=== PATIENT | female | born 1970 | race African-American/Black ===

== ENCOUNTER 2024-11-03 09:08 | Inpatient (IN) | payer MEDICAID ==
[~2024-11-03] VITALS: Ht 167.6 cm; Wt 122.8 kg
--- NOTE | 2024-11-03 10:23 | ED.PDOC ---
Musculoskeletal HPI Comments 53 year old female presents to the ED with chief complaint of left thigh pain and swelling. Patient reports that she has been experiencing left thigh pain and swelling with associated SOB and mild chest pain since yesterday. 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 Patient denie s any numbness, dizziness, headache, N/V, or fever. Chief Complaint: Lower Extremity Time Seen by MD: 10:12 Reviewed Notes: Nurses Notes, Medications, Allergies Allergies: Coded Allergies: NO KNOWN ALLERGIES (Unverified , 11/03/24) Home Meds Reported Medications Amlodipine Besylate (Amlodipine Besylate) 5 Mg Tab, 1 TAB PO DAILY 11/03/24 Ramelteon (Ramelteon) 8 Mg Tab, 1 TAB PO DAILY 11/03/24 Bupropion Hcl (Bupropion Hcl Er) 200 Mg Tab, 1 TAB PO QAM 11/03/24 Lisinopril (Lisinopril) 20 Mg Tab, 1 TAB PO DAILY 11/03/24 Aripiprazole (Aripiprazole) 5 Mg Tab, 1 TAB PO DAILY 11/03/24 Information Source: Patient Mode of Arrival: Ambulatory Location: Left Extremity Location: Thigh Timing: Days Prehospital treatment: None Severity: Moderate Able to Move Extremity: Yes Bear Weight: Fully Pain: Moderate Mechanism: Spontaneous Circumstances: Spontaneous Onset of Symptoms: Spontaneous Symptoms: Swelling, Pain DVT Risk Factors: PE, CHF, DVT Last Tetanus: Unknown Past Medical History PAST MEDICAL HISTORY: Asthma, CHF, HTN, PE Past Medical History (Other): DVT Surgical History: Denies all surgeries ASSIGNMENT EDITOR History: Denies all ASSIGNMENT EDITOR Hx Family History Family History: Reviewed,noncontributory to illness Social History Smoker: Non-Smoker Alcohol: Denies ETOH Use Drugs: Denies Drug Use Lives In: Home Constitutional: denies: chills, diaphoresis, fatigue, fever, malaise, sweats, weakness, others EENTM: denies: blurred vision, double vision, ear bleeding, ear discharge, ear drainage, ear pain, ear ringing, eye pain, eye redness, hearing loss, mouth pain, mouth swelling, nasal discharge, nose bleeding, nose congestion, nose pain, photophobia, tearing, throat pain, throat swelling, voice changes, others Respiratory: reports: shortness of breath; denies: cough, hemoptysis, orthopnea, SOB at rest, SOB with excertion, stridor, wheezing, others Cardiovascular: reports: chest pain; denies: dizzy spells, diaphoresis, Dyspnea on exertion, edema, irregular heart beat, left arm pain, lightheadedness, palpitations, PND, syncope, others Gastrointestinal: denies: abdomen distended, abdominal pain, blood streaked bowels, constipated, diarrhea, dysphagia, difficulty swallowing, hematemesis, melena, nausea, poor appetite, poor fluid intake, rectal bleeding, rectal pain, vomiting, others Genitourinary: denies: abnormal vagina bleeding, burning, dyspareunia, dysuria, flank pain, frequency, hematuria, incontinence, pain, , vagina discharge, urgency, others Neurological: denies: dizziness, fainting, headache, left sided numbness, left sided weakness, numbness, paresthesia, pre-existing deficit, right sided numbne ss, right sided weakness, seizure, speech problems, tingling, tremors, weakness, others Musculoskeletal: reports: others (Left thigh pain); denies: back pain, gout, joint pain, joint swelling, muscle pain, muscle stiffness, neck pain Integumetry: denies: bruises, change in color, change in hair/nails, dryness, laceration, lesions, lumps, rash, wounds, others Allergic/Immunocompromised: denies: Difficulty Healing, Frequent Infections, Hives, Itching, others Hematologic/Lymphatic: denies: anemia, blood clots, easy bleeding, easy bruising, swollen glands, others Endocrine: denies: excessive hunger, excessive sweating, excessive thirst, excessive urination, flushing, intolerance to cold, intolerance to heat, unexplained weight gain, unexplained weight loss, others Psychiatric: denies: anxiety, bipolar disorder, depression, hopeless, panic disorder, schizophrenia, sleepless, suicidal, others All Other Systems: Reviewed and Negative Physical Exam General Appearance: Moderate Distress, Normal HEENT: Normal ENT Inspection, PERRL/EOMI Neck: Full Range of Motion, Non-Tender, Normal, Normal Inspection Respiratory: Chest Non-Tender, Lungs Clear, No Accessory Muscle Use, No Respiratory Distress, Normal Breath Sounds Cardiovascular: No Edema, No JVD, No Murmur, No Gallop, Normal Peripheral Pulses, Regular Rate/Rhythm Breast Exam: Deferred Gastrointestinal: No Organomegaly, Non Tender, No Pulsatile Mass, Normal Bowel Sounds, Soft Genitalia: Deferred Pelvic: Deferred Rectal: Deferred Extremities: No calf tenderness, Normal capillary refill, Normal inspection, Normal range of motion, Non-tender, No pedal edema Musculoskeletal : Apperance: Normal Neurologic: Alert, car body inspector II-XII nml as Tested, No Motor Deficits, Normal Affect, Normal Mood, No Sensory Deficits Cerebellar Function: Normal Reflexes: Normal Skin: Dry, Normal Color, Warm Peripheral Pulses: 3+ Radial (R), 3+ Radial (L) Lymphatic: No Adenopathy Was a procedure done? Was a procedure done?: No Differential Diagnosis EXT Differential Diagnosis: Deep Vein Thrombosis X-Ray, Labs, Meds, VS Vital Signs Date Time Temp Pulse Resp B/P (MAP) Pulse Ox O2 Delivery O2 Flow Rate FiO2 11/03/24 11:45 98.8 75 16 139/91 (107) 97 98.8 11/03/24 09:22 98.4 84 20 154/94 (114) 100 Bilateral DVT US: Findings: RIGHT SIDE: There is thrombus seen in the right lower extremity involving the superficial femoral vein. LEFT SIDE: There is thrombus seen in the left lower extremity extending from the common femoral vein to the superficial femoral vein. 1. Impression: 2. Bilateral positive DVT 3. Referring physician informed of the preliminary findings immediately following the exam. Patient alert. History of blood clots. Vitals stable. Answering all questions. No sign of any calf tenderness. She does state that she has been having swelling of the left thigh. Ultrasound does reveal DVT. She was given Lovenox. Reviewed her previous visit. Explained to the patient. Continue cardiac monitoring. Images Reviewed?: Images reviewed and evaluated by me Time of 1ST Reevaluation: 11:12 Reevaluation 1ST: Unchanged Patient Education/Counseling: Diagnosis, Treatment Family Education/Counseling: No Family Present Additional Information The following tests were ordered, and results were reviewed by me: Bilateral lower DVT. I reviewed and agreed with the following test results read by other providers: Bilateral lower DVT. I discussed treatment and results with medical personnel. Departure 1 Departure Time of Disposition: 13:03 Impression: Primary Impression: DVT (deep venous thrombosis) Qualified Codes: I82.403 - Acute embolism and thrombosis of unspecified deep veins of lower extremity, bilateral Disposition: ADMITTED INPATIENT Admit to: Med Surg Condition: Guarded Critical Care Note Critical Care Time?: Yes (90 min-critical care time only) Stability Stability form required: No Heart Score Heart Score: Heart Score Response (Comments) Value History N/A 0 EKG N/A 0 Age N/A 0 Risk Factors N/A 0 Troponin N/A 0 Total 0 I personally scribed for KETURAH ABDUL MD ([email or web address]) on 11/03/24 at 10:23. Electronically submitted by Luan Ledesma ([email or web address]). I personally scribed for KETURAH ABDUL MD ([email or web address]) on 11/03/24 at 11:16. Electronically submitted by Luan Ledesma ([email or web address]). I personally scribed for KETURAH ABDUL MD ([email or web address]) on 11/03/24 at 17:12. Electronically submitted by Kamilah Ferreira ([email or web address]). KETURAH ABDUL MD Nov 03, 2024 10:23
--- NOTE | 2024-11-03 10:59 | DVH ---
Bilateral lower extremity venous duplex Clinical History: dvt Comparison: None Technique: Duplex doppler evaluation of the deep venous systems of both lower extremities from the common femora l veins to the popliteal veins including color doppler and spectral/pulsed waveform analysis was perf ormed. Findings: RIGHT SIDE: There is thrombus seen in the right lower extremity involving the superficial femoral vein. LEFT SIDE: There is thrombus seen in the left lower extremity extending from the common femoral vein to the supe rficial femoral vein. 1. Impression: 2. Bilateral positive DVT 3. Referring physician informed of the preliminary findings immediately following the exam.
[2024-11-03] MEDS ORDERED: HEPARIN DRIP/D5W 100UNITS/ML 250 ML IV SCH (11:45)
[2024-11-03] MEDS ORDERED: ENOXAPARIN SOD 100 MG/1 ML SYRINGE SC ONE (11:45)
[2024-11-03] MEDS: HEPARIN SODIUM (PORCINE) 5000 UNITS/ML 1ML VIAL IV ONE ×2 (11:45→21:23)
[2024-11-03] MEDS ORDERED: NITROGLYCERIN 0.4 MG SL TAB SL PRN (12:00)
[2024-11-03] MEDS ORDERED: MORPHINE SULFATE INJ 2 MG/ml SYRG IV PRN (12:00)
[2024-11-03] MEDS ORDERED: ACETAMINOPHEN 325 MG TAB PO PRN (12:00)
--- NOTE | 2024-11-03 12:05 | DVHHP2 ---
History of Present Illness Reason for Visit: leg swelling and painn History of Present Illness Rhonda Carolina is a 53-year-old female with past medical history of hypertension, asthma, CHF, PE, right ankle surgery, and gastric bypass who presents to the ED with bilateral leg pain and swelling x1 day. Patient reports that she has history of PE and is currently taking Eliquis. Patient reports that her pain is a 9/10 aching and constant. She denies any fevers, chills, chest pain, shortness of breath, abdominal pain, nausea, vomiting, diarrhea, lightheadedness, and dizziness. Cardiovascular: CHF, HTN Pulmonary: Asthma, Pulmonary embolus Past Surgical History: Other Past Surgical History Right ankle surgery Gastric bypass Smoke: No ALCOHOL: none Drugs: Marijuana Lives: with Family Domestic Violence: Neg Review of Systems Constitutional: No: Fever, Chills, Sweats, Weakness, Malaise, Other Eyes: No: Pain, Vision change, Conjunctivae inflammation, Eyelid inflammation, Other, Redness ENT: No: Ear pain, Ear discharge, Nose pain, Nose discharge, Nose congestion, Mouth pain, Mouth swelling, Throat pain, Throat swelling, Other Respiratory: No: Cough, Dry, Shortness of breath, SOB with excertion, Wheezing, Hemoptysis, Pleuritic Pain, Sputum, Wheezing, Other Cardiovascular: No: Chest Pain, Palpitations, Orthopnea, Paroxysmal Noc. Dyspnea, Edema, Lt Headedness, Other Gastrointestinal: No: Nausea, Vomiting, Abdominal Pain, Diarrhea, Constipation, Melena, Hematochezia, Other Genitourinary: No Dysuria, No Frequency, No Incontinence, No Hematuria, No Retention, No Other Musculoskeletal: leg pain; No: other, neck pain, shoulder pain, arm pain, back pain, hand pain, foot pain Skin: No: Rash, Lesions, Jaundice, Bruising, Other Neurological: No: Weakness, Numbness, Incoordination, Change in speech, Confusion, Seizures, Other Allergies: Coded Allergies: NO KNOWN ALLERGIES (Unverified , 11/03/24) Medications Current Medications Medications Dose Ordered Sig/Anabela Route Start Time Stop Time Status Last Admin Dose Admin Heparin Sodium/ Dextrose 250 ml @ 21.258 mls/ hr [id number] IV 11/03/24 11:45 UNV Exam Vital Signs Vital Signs Date Time Temp Pulse Resp B/P (MAP) Pulse Ox O2 Delivery O2 Flow Rate FiO2 11/03/24 11:45 98.8 75 16 139/91 (107) 97 98.8 General Appearance: Alert, Oriented X3, Cooperative, No acute distress HEENT: Atraumatic, PERRLA, EOMI, Mucous membr. moist/pink Respiratory: Clear to auscultation, Normal air movement Cardiovascular: Regular rate, Normal S1, Normal S2, No murmurs Abdominal: Normal bowel sounds, Soft, No tenderness, No hepatospenomegaly, No masses Extremities: No clubbing, No cyanosis, No edema, Normal pulses, No tenderness/swelling Skin: No rashes, No breakdown, No significant lesion Neuro: Normal gait, Normal speech, Strength at 5/5 X4 ext, Normal tone, Sensation intact Psych/Mental Status: Mental status NL, Mood NL Labs/Xrays Bilateral lower extremity venous duplex Clinical History: dvt Comparison: None Technique: Duplex doppler evaluation of the deep venous systems of both lower extremities f rom the common femoral veins to the popliteal veins including color doppler and spectral/pulsed waveform analysis was performed. Findings: RIGHT SIDE: There is thrombus seen in the right lower extremity involving the superficial femoral vein. LEFT SIDE: There is thrombus seen in the left lower extremity extending from the common femoral vein to the superficial femoral vein. 1. Impression: 2. Bilateral positive DVT Assessment/Plan Assessment/Plan Assessment/Plan: DVT Hx of PE - on eliquis ekg cxr labs am labs ekg am cta chest US BLE - positive for DVT Protein C Protein S functional Factor V liden heparin drip heme consult PT/PTT trop Hx of HTN Chronic CHF continue home meds Chronic asthma resp txs FEN/PPX diet IVf DVT PPx - heparin drip PUD PPx - not indicated patient has no history of GERD or GI bleed Home medications reconciled Discussed plan of care with patient and nurse Admit to tele Plan discussed with: Patient My Orders Orders - KELLY LYNCH Procedure Category Date Status Time Complete Blood Count LAB 11/03/24 Logged 11:35 Comprehensive LAB 11/03/24 Logged Metabolic Panel 11:35 Electrocardigram EKG 11/03/24 Logged 11:35 Chest Xray 1 View XY 11/03/24 Logged 11:36 Platelet Monitoring JARROD 11/03/24 In Process 11:42 Vte Protocol Initiated [facility] 11/03/24 In Process 11:42 Heparin Per [facility] 11/03/24 In Process Standardized Proce 11:42 Discontinue All Im JARROD 11/03/24 In Process Injections 11:42 PTPTT LAB 11/03/24 Logged 11:42 Complete Blood Count LAB 11/03/24 Logged 11:42 Heparin Sodium PHA 11/03/24 Logged (Porcine) 11:45 Heparin Drip/D5w PHA 11/03/24 Logged 100units/Ml 11:[address] 11/03/24 Logged Contrast 11:42 * Hematology/Oncology CONS 11/03/24 Transmitted Consult 11:55 Factor V Leiden LAB 11/03/24 Logged Mutation 11:55 Protein C Antigen LAB 11/03/24 Logged 11:55 Protein S-Functional LAB 11/03/24 Logged 11:55 Admit ADMIT 11/03/24 Transmitted 11:59 Allergies [facility] 11/03/24 In Process 11:59 Code Status CODE 11/03/24 Transmitted 11:59 Hydrocodone-Acet PHA 11/03/24 Logged 5/325mg Tab ([place] 12:00 Ondansetron Hcl PHA 11/03/24 Logged (Zofran) 12:00 Complete Blood Count LAB 11/04/24 Verified 04:00 Comprehensive LAB 11/04/24 Verified Metabolic Panel 04:00 Cardiac DIET 11/03/24 Transmitted Diet-2gna,Lofat,Lochol Lunch Acetaminophen Tablet [facility] 11/03/24 Logged (Tylenol Tablet) 12:00 Morphine Sulfate PHA 11/03/24 Logged Injection 12:00 Nitroglycerin PHA 11/03/24 Logged Sublingual (Ntrostat 12:00 Morphine Sulfate [facility] 11/03/24 Logged Injection 12:00 Stat Ekg For Chest [facility] 11/03/24 In Process Pain 11:59 Notify Of Changes [facility] 11/03/24 In Process From Base 11:59 Veneer Manufacturer For [facility] 11/03/24 In Process 24 Hours 11:59 Emergency Dysrhythmia [facility] 11/03/24 In Process Protocol 11:59 Rhythm Strips Once [facility] 11/03/24 In Process Every Shift 11:59 Oxygen By Nasal RT 11/03/24 Transmitted Cannula 11:59 Date of Service: Nov 03, 2024 Billing Provider: KELLY LYNCHP Common Visit Codes: [id number] INP/OBS CARE (MOD) KELLY LYNCH BLADDER CLEANER Nov 03, 2024 12:05
[2024-11-03] MEDS ORDERED: LISI20TA56 PO (12:23)
[2024-11-03] MEDS ORDERED: RAME8TAB26 PO (12:23)
[2024-11-03] MEDS ORDERED: AMLO1TAB22 PO (12:23)
[2024-11-03] MEDS ORDERED: BUPR200T49 PO (12:23)
[2024-11-03] MEDS ORDERED: ARIP5TAB22 PO (12:23)
[2024-11-03] MEDS ORDERED: ALBUTEROL SULF 2.5 MG/0.5ML(0.5%) NEB SOLN NEB PRN (12:30)
[2024-11-03] MEDS ORDERED: IPRATROPIUM BROM 0.5 MG/2.5ML INH SOL NEB PRN (12:30)
[2024-11-03 13:17] LABS: Basophils # (auto) 0.1 10 ^3/uL (0-0.2); Basophils % (auto) 1.3 % (0.0-2.0); Eosinophils # (auto) 0.1 10 ^3/uL (0-0.8); Eosinophils % (auto) 1.8 % (0.0-7.0); Hematocrit 37.4 % (36.0-46.0); Hemoglobin 12.2 g/dL (12.2-16.2); Lymphocytes # (auto) 1.7 10 ^3/uL (0.4-5.4); Lymphocytes % (auto) 31.1 % (10.0-50.0); Mean Corpuscular Hemoglobin 28.5 pg (28.0-32.0); Mean Corpuscular Hgb Conc. 32.5 g/dL (32.0-36.0); Mean Corpuscular Volume 87.7 fL (80.0-100.0); Monocytes # (auto) 0.3 10 ^3/uL (0-1.3); Monocytes % (auto) 6.3 % (0.0-12.0); Neutrophils # (auto) 3.2 10 ^3/uL (1.6-8.6); Neutrophils % (auto) 59.5 % (37.0-80.0); Nucleated Red Blood Cells % 0.1 %; Platelet Count (auto) 164 10^3/uL (140-450); Red Blood Cells 4.27 10^6/uL (4.0-5.20); Red Cell Distribution Width 18.5 % (11.8-14.3); White Blood Cell 5.5 10^3/uL (4.4-10.8)
[2024-11-03 13:30] LABS: Partial Thromboplastin Time 24.5 SEC (24.5-34.5); Prothrombin Time 10.6 sec (9.3-11.8)
[2024-11-03 13:32] LABS: Albumin 4.2 g/dL (3.2-4.8); Alkaline Phosphatase 75 U/L (46-116); Anion Gap 8 (5-15); Aspartate Aminotransferase 15 U/L (13-40); BUN/Creatinine Ratio 10.4 (10.0-20.0); Calcium 10.1 mg/dL (8.7-10.4); Carbon Dioxide 24 mmol/L (20-31); Chloride 106 mmol/L (98-107); Glucose 88 mg/dL (74-106); Potassium 3.8 mmol/L (3.5-5.1); Sodium 138 mmol/L (136-145)
[2024-11-03 13:33] LABS: Bilirubin, Total 1.2 mg/dL (0.2-1.0); Total Protein 8.1 g/dL (5.7-8.2)
[2024-11-03 13:39] VITALS: BP 131/88; PULSE 81; RESP 18; O2SAT 96
[2024-11-03 13:40] LABS: Alanine Aminotransferase < 9 U/L (7-40); Blood Urea Nitrogen 8 mg/dL (9-23)
--- NOTE | 2024-11-03 14:53 | DVH ---
CHEST RADIOGRAPH Indication: sob Technique: Single frontal view of the chest was obtained Comparison: None FINDINGS: Lines and Tubes: None Lungs: No focal consolidation. Pleura: No effusion. No pneumothorax. Cardiomediastinal contours: Unremarkable Bones: No acute osseous abnormality. IMPRESSION: 1. No acute cardiopulmonary disease.
[2024-11-03] MEDS: IOHEXOL 350 MG/ML 100ML IJ ONE (14:54)
[2024-11-03 15:00] VITALS: PULSE 82; RESP 16; O2SAT 100
--- NOTE | 2024-11-03 15:03 | DVH ---
CLINICAL INFORMATION: 53 years old, Female; pulmonary embolism. No other clinical information provi ded. Positive DVT. TECHNIQUE: Axial CTA images of the chest were obtained after the uneventful administration of 100 mL of Omnipaque 350 IV contrast. Coronal and sagittal reformatted images and MIP images were obtained, reviewed, and stored. One or more of the following dose reduction techniques were used: Automated exp osure control. Adjustment of mA and/or kV according to patient size. CTDIvol = 32.56, 26.95, 0.07, 0.07 mGy DLP = 1028.46 mGy-cm COMPARISON: Chest radiograph dated 11/03/2024. FINDINGS: Pulmonary arteries: No central or lobar pulmonary embolism. Evaluation for segmental or subsegmental pulmonary emboli is limited due to respiratory motion artifact Aorta: No aneurysm or dissection. Cardiac: Heart size is within normal limits. Mediastinum/lorrie: No mass or adenopathy. Lungs: Atelectasis in the lower lobes. No focal consolidation. No pneumothorax or pleural effusion. R espiratory motion limits evaluation for subtle findings. Chest wall: No mass or other abnormality. Upper abdomen: Small to moderate hiatal hernia. Postsurgical changes are seen at the proximal stomach with suture material visualized. Bones: No fracture or suspicious intraosseous lesions. IMPRESSION: 1. No central or lobar pulmonary embolism. Evaluation for segmental or subsegmental pulmonary emboli is limited due to respiratory motion artifact. 2. Otherwise, no evidence of acute disease in the chest. 3. Nonacute findings as detailed above.
[2024-11-03] MEDS: ONDANSETRON HCL 4 MG/2 ML VIAL IV PRN (16:32)
[2024-11-03] MEDS: MORPHINE SULFATE INJ 2 MG/ml SYRG IV PRN (16:33)
[2024-11-03 20:10] VITALS: O2SAT 95
[2024-11-03 20:56] VITALS: PULSE 77; RESP 17; O2SAT 97
[2024-11-03] MEDS: HEPARIN DRIP/D5W 100UNITS/ML 250 ML IV SCH (21:30)
[2024-11-03] MEDS: HYDROcodone-ACET 5/325MG TAB PO PRN (21:35)
[2024-11-03] MEDS ORDERED: ENOXAPARIN SOD 100 MG/1 ML SYRINGE SC SCH (22:00)
[2024-11-03 22:44] VITALS: BP 132/79; PULSE 87; RESP 17; RESP 20; TEMP 97.8; O2SAT 96
[2024-11-04] VITALS (10 sets, daily range): BP systolic 106–134; BP diastolic 64–85; PULSE 60–84; RESP 15–18; TEMP 97.2–98.6; O2SAT 95–98
[2024-11-04 06:49] LABS: Albumin 4.1 g/dL (3.2-4.8); Alkaline Phosphatase 70 U/L (46-116); Anion Gap 6 (5-15); BUN/Creatinine Ratio 9.8 (10.0-20.0); Calcium 9.9 mg/dL (8.7-10.4); Carbon Dioxide 26 mmol/L (20-31); Chloride 107 mmol/L (98-107); Glucose 90 mg/dL (74-106); Sodium 139 mmol/L (136-145)
[2024-11-04 06:50] LABS: Bilirubin, Total 1.1 mg/dL (0.2-1.0); Total Protein 7.9 g/dL (5.7-8.2)
[2024-11-04 06:56] LABS: Alanine Aminotransferase < 9 U/L (7-40); Aspartate Aminotransferase 11 U/L (13-40); Blood Urea Nitrogen 8 mg/dL (9-23); Potassium 3.5 mmol/L (3.5-5.1)
[2024-11-04 06:57] LABS: Basophils # (auto) 0.1 10 ^3/uL (0-0.2); Eosinophils # (auto) 0.2 10 ^3/uL (0-0.8); Eosinophils % (auto) 2.9 % (0.0-7.0); Hematocrit 36.9 % (36.0-46.0); Hemoglobin 11.8 g/dL (12.2-16.2); Lymphocytes # (auto) 2.5 10 ^3/uL (0.4-5.4); Lymphocytes % (auto) 44.8 % (10.0-50.0); Mean Corpuscular Hemoglobin 28.3 pg (28.0-32.0); Mean Corpuscular Hgb Conc. 32.1 g/dL (32.0-36.0); Mean Corpuscular Volume 88.2 fL (80.0-100.0); Monocytes # (auto) 0.4 10 ^3/uL (0-1.3); Monocytes % (auto) 6.8 % (0.0-12.0); Neutrophils # (auto) 2.5 10 ^3/uL (1.6-8.6); Neutrophils % (auto) 44.5 % (37.0-80.0); Nucleated Red Blood Cells % 0.1 %; Platelet Count (auto) 174 10^3/uL (140-450); Red Blood Cells 4.18 10^6/uL (4.0-5.20); Red Cell Distribution Width 18.3 % (11.8-14.3); White Blood Cell 5.7 10^3/uL (4.4-10.8)
[2024-11-04 07:32] LABS: INR 1.07 (0.9-1.15); Prothrombin Time 11.3 sec (9.3-11.8)
[2024-11-04 07:37] LABS: Partial Thromboplastin Time > 139.0 SEC (24.5-34.5)
[2024-11-04] MEDS: HEPARIN DRIP/D5W 100UNITS/ML 250 ML IV SCH ×2 (08:59→16:09)
[2024-11-04 14:56] LABS: INR 1.06 (0.9-1.15); Prothrombin Time 11.2 sec (9.3-11.8)
[2024-11-04 14:58] LABS: Partial Thromboplastin Time > 139.0 SEC (24.5-34.5)
--- NOTE | 2024-11-04 16:56 | DVHPN2 ---
Subjective I am assuming the care of the patient from today onwards. Patient is a 53-year-old female with a known history of recurrent PE and DVT in the past currently on Eliquis presented to the hospital with a bilateral leg pain and swelling found to have bilateral lower extremity dvt. Reviewed: Care Plan Changes from previous H/P or p: No Changes Eyes: No Pain, No Vision change, No Conjunctivae inflammation, No Eyelid inflammation, No Other, No Redness ENT: No Ear pain, No Ear discharge, No Nose pain, No Nose discharge, No Nose congestion, No Mouth pain, No Mouth swelling, No Throat pain, No Throat swelling, No Other Cardiovascular: No Chest Pain, No Palpitations, No Orthopnea, No Paroxysmal Noc. Dyspnea, No Edema, No Lt Headedness, No Other Respiratory: No Cough, No Dry, No Shortness of breath, No SOB with excertion, No Wheezing, No Hemoptysis, No Pleuritic Pain, No Sputum, No Other Gastrointestinal: No Nausea, No Vomiting, No Abdominal Pain, No Diarrhea, No Constipation, No Melena, No Hematochezia, No Other Genitourinary: No Dysuria, No Frequency, No Incontinence, No Hematuria, No Retention, No Other Musculoskeletal: No other, No neck pain, No shoulder pain, No arm pain, No back pain, No hand pain; leg pain; No foot pain Skin: No Rash, No Lesions, No Jaundice, No Bruising, No Other Objective Vitals Vital Signs Date Time Temp Pulse Resp B/P (MAP) Pulse Ox O2 Delivery O2 Flow Rate FiO2 11/04/24 16:13 79 18 134/85 11/04/24 10:00 96 Room Air 0.0 11/04/24 10:00 21 11/04/24 08:30 98.6 98.6 Intake/Output Intake and Output 11/04/24 07:00 Intake Total 540 ml Balance 540 ml Intake Oral 500 ml IV Total 40 ml # Bowel Movements 1 Medications Current Medications Medications Dose Ordered Sig/Anabela Route Start Time Stop Time Status Last Admin Dose Admin Acetaminophen/ Hydrocodone Bitart 1 tab Q4HP PRN PO 11/03/24 12:00 11/04/24 09:15 1 TAB Ondansetron HCl 4 mg Q4HP PRN IV 11/03/24 12:00 11/04/24 06:30 4 MG Acetaminophen 650 mg Q6HP PRN PO 11/03/24 12:00 Morphine Sulfate 2 mg Q4HPRN PRN IV 11/03/24 12:00 11/04/24 16:13 2 MG Nitroglycerin 0.4 mg Q5MINP PRN SL 11/03/24 12:00 Morphine Sulfate 2 mg Q30M PRN IV 11/03/24 12:00 Albuterol 2.5 mg Q4HPRN PRN NEB 11/03/24 12:30 Ipratropium Kermit 0.5 mg Q4HPRN PRN NEB 11/03/24 12:30 Heparin Sodium/ Dextrose 250 ml @ 14 mls/hr [id number] IV 11/04/24 16:00 11/04/24 16:09 14 MLS/HR Trazodone HCl 50 mg HS PRN PO 11/04/24 15:45 Laboratory Results Laboratory Tests 11/04/24 05:54 Chemistry Test 11/04/24 05:54 Albumin 4.1 g/dL (3.2-4.8) Calcium Level 9.9 mg/dL (8.7-10.4) Total Protein 7.9 g/dL (5.7-8.2) Coagulation Test 11/04/24 05:54 11/04/24 14:05 Prothrombin Time 11.3 sec (9.3-11.8) 11.2 sec (9.3-11.8) Prothrombin Time INR 1.07 (0.9-1.15) 1.06 (0.9-1.15) Activated Partial Thromboplast Time > 139.0 SEC (24.5-34.5) *H > 139.0 SEC (24.5-34.5) *H LFT Test 11/04/24 05:54 Alanine Aminotransferase (ALT) < 9 U/L (7-40) Alkaline Phosphatase 70 U/L (46-116) Aspartate Amino Transferase (AST) 11 U/L (13-40) L Total Bilirubin 1.1 mg/dL (0.2-1.0) H Assessment/Plan Assessment/Plan I am assuming the care of the patient from today onwards. Patient is a 53-year-old female with a 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 Bilateral lower extremity DVT 2. Bilateral lower extremity swelling secondary to 1. 3. History of DVT and PE in the past as she was on control pills 4. History of gastric bypass surgery 5. Hypertension 6. Chronic insomnia, patient is requesting sleeping aid as she has chronic insomnia she takes ramelteon at home which were hospitalist not carry, trazodone 50 mg p.o. q.h.s. p.r.n. insomnia only. -continue heparin drip, obtain Hematology consultation -please benefits and alternatives of heparin drip including life-threatening bleeding disability explained to the patient in detail who understand verbalized understanding and agreeable to plan. Plan discussed with: Patient My Orders Orders - SANTOS RODRIGUEZ MD Procedure Category Date Status Time Trazodone Hcl PHA 11/04/24 In Process (Desyrel) 15:45 Date of Service: Nov 04, 2024 Billing Provider: SANTOS RODRIGUEZ MD Common Visit Codes: [id number] INP/OBS CARE(MOD) SANTOS RODRIGUEZ MD Nov 04, 2024 16:56
[2024-11-04] MEDS ORDERED: HEPARIN DRIP/D5W 100UNITS/ML 250 ML IV SCH (17:00)
[2024-11-04 22:38] LABS: INR 1.05 (0.9-1.15); Prothrombin Time 11.1 sec (9.3-11.8)
[2024-11-04 22:40] LABS: Partial Thromboplastin Time 115.5 SEC (24.5-34.5)
[2024-11-05] VITALS (11 sets, daily range): BP systolic 118–140; BP diastolic 68–73; PULSE 71–98; RESP 16–20; TEMP 97.1–98; O2SAT 90–98
[2024-11-05] MEDS: HEPARIN DRIP/D5W 100UNITS/ML 250 ML IV SCH ×2 (05:16→17:00)
[2024-11-05 08:31] LABS: Basophils # (auto) 0.1 10 ^3/uL (0-0.2); Basophils % (auto) 1.3 % (0.0-2.0); Eosinophils # (auto) 0.1 10 ^3/uL (0-0.8); Eosinophils % (auto) 3.1 % (0.0-7.0); Hematocrit 35.6 % (36.0-46.0); Hemoglobin 11.6 g/dL (12.2-16.2); Lymphocytes # (auto) 1.8 10 ^3/uL (0.4-5.4); Lymphocytes % (auto) 40.9 % (10.0-50.0); Mean Corpuscular Hemoglobin 28.1 pg (28.0-32.0); Mean Corpuscular Hgb Conc. 32.6 g/dL (32.0-36.0); Mean Corpuscular Volume 86.1 fL (80.0-100.0); Monocytes # (auto) 0.3 10 ^3/uL (0-1.3); Monocytes % (auto) 6.6 % (0.0-12.0); Neutrophils # (auto) 2.1 10 ^3/uL (1.6-8.6); Neutrophils % (auto) 48.1 % (37.0-80.0); Nucleated Red Blood Cells % 0.2 %; Platelet Count (auto) 184 10^3/uL (140-450); Red Blood Cells 4.13 10^6/uL (4.0-5.20); Red Cell Distribution Width 18.6 % (11.8-14.3); White Blood Cell 4.3 10^3/uL (4.4-10.8)
[2024-11-05 08:49] LABS: INR 1.13 (0.9-1.15); Prothrombin Time 11.9 sec (9.3-11.8)
[2024-11-05 16:12] LABS: INR 1.03 (0.9-1.15); Prothrombin Time 10.9 sec (9.3-11.8)
[2024-11-05 16:27] LABS: Partial Thromboplastin Time 76.6 SEC (24.5-34.5)
--- NOTE | 2024-11-05 16:57 | DVHPN2 ---
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 Patient will be started on Coumadin. Reviewed: Care Plan Changes from previous H/P or p: No Changes Eyes: No Pain, No Vision change, No Conjunctivae inflammation, No Eyelid inflammation, No Other, No Redness ENT: No Ear pain, No Ear discharge, No Nose pain, No Nose discharge, No Nose congestion, No Mouth pain, No Mouth swelling, No Throat pain, No Throat swelling, No Other Cardiovascular: No Chest Pain, No Palpitations, No Orthopnea, No Paroxysmal Noc. Dyspnea, No Edema, No Lt Headedness, No Other Respiratory: No Cough, No Dry, No Shortness of breath, No SOB with excertion, No Wheezing, No Hemoptysis, No Pleuritic Pain, No Sputum, No Other Gastrointestinal: No Nausea, No Vomiting, No Abdominal Pain, No Diarrhea, No Constipation, No Melena, No Hematochezia, No Other Genitourinary: No Dysuria, No Frequency, No Incontinence, No Hematuria, No Retention, No Other Musculoskeletal: No other, No neck pain, No shoulder pain, No arm pain, No back pain, No hand pain; leg pain; No foot pain Skin: No Rash, No Lesions, No Jaundice, No Bruising, No Other Objective Vitals Vital Signs Date Time Temp Pulse Resp B/P (MAP) Pulse Ox O2 Delivery O2 Flow Rate FiO2 11/05/24 13:00 97.6 98 18 120/68 (85) 95 97.6 11/05/24 10:02 Room Air* 0 21 Intake/Output Intake and Output 11/05/24 07:00 Intake Total 1590 ml Output Total 850 ml Balance 740 ml Intake Oral 1590 ml Output Urine Total 850 ml # Voids 5 # Bowel Movements 1 Medications Current Medications Medications Dose Ordered Sig/Anabela Route Start Time Stop Time Status Last Admin Dose Admin Acetaminophen/ Hydrocodone Bitart 1 tab Q4HP PRN PO 11/03/24 12:00 11/05/24 13:53 1 TAB Ondansetron HCl 4 mg Q4HP PRN IV 11/03/24 12:00 11/04/24 06:30 4 MG Acetaminophen 650 mg Q6HP PRN PO 11/03/24 12:00 Morphine Sulfate 2 mg Q4HPRN PRN IV 11/03/24 12:00 11/05/24 09:44 2 MG Nitroglycerin 0.4 mg Q5MINP PRN SL 11/03/24 12:00 Morphine Sulfate 2 mg Q30M PRN IV 11/03/24 12:00 Albuterol 2.5 mg Q4HPRN PRN NEB 11/03/24 12:30 Ipratropium [place] 0.5 mg Q4HPRN PRN NEB 11/03/24 12:30 Trazodone HCl 50 mg HS PRN PO 11/04/24 15:45 Warfarin Sodium RX PROTOCOL PER PHARMACY PO 11/05/24 15:15 Heparin Sodium/ Dextrose 250 ml @ 9 mls/hr Q24H IV 11/05/24 16:30 Laboratory Results Laboratory Tests 11/04/24 05:54 11/05/24 07:31 Coagulation Test 11/04/24 22:00 11/05/24 07:31 11/05/24 15:00 Prothrombin Time 11.1 sec (9.3-11.8) 11.9 sec (9.3-11.8) H 10.9 sec (9.3-11.8) Prothrombin Time INR 1.05 (0.9-1.15) 1.13 (0.9-1.15) 1.03 (0.9-1.15) Activated Partial Thromboplast Time 115.5 SEC (24.5-34.5) *H 68.0 SEC (24.5-34.5) H 76.6 SEC (24.5-34.5) *H Assessment/Plan Assessment/Plan Patient is a 53-year-old female with a 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 Bilateral lower extremity DVT, currently on heparin drip we will add Coumadin per pharmacy 2. Bilateral lower extremity swelling secondary to 1. 3. History of DVT and PE in the past as she was on control pills 4. History of gastric bypass surgery 5. Hypertension 6. Chronic insomnia, patient is requesting sleeping aid as she has chronic insomnia she takes ramelteon at home which were hospitalist not carry, trazodone 50 mg p.o. q.h.s. p.r.n. insomnia only. -monitor INR. Once INR is more than two patient can be discharged or patient can be discharged on Coumadin as well as three days of Lovenox if she requesting to go home. -continue heparin drip, transfer station attendant recommended Coumadin, consult was requested curbside. -please benefits and alternatives of heparin drip including life-threatening bleeding disability explained to the patient in detail who understand verbalized understanding and agreeable to plan. Plan discussed with: Patient My Orders Orders - SANTSO RODRIGUEZ MD Procedure Category Date Status Time Warfarin Per Rx PHA 11/05/24 In Process Protocol (Coumadin 15:15 Warfarin Sodium PHA 11/05/24 In Process (Coumadin) 17:00 Date of Service: Nov 05, 2024 Billing Provider: SANTOS RODRIGUEZ MD Common Visit Codes: [id number] INP/OBS CARE(MOD) SANTOS RODRIGUEZ MD Nov 05, 2024 16:57
[2024-11-05] MEDS: WARFARIN SODIUM 5 MG TAB PO ONE (18:31)
[2024-11-05 22:30] LABS: INR 1.02 (0.9-1.15); Partial Thromboplastin Time 55.5 SEC (24.5-34.5); Prothrombin Time 10.8 sec (9.3-11.8)
[2024-11-06] VITALS (11 sets, daily range): BP systolic 100–124; BP diastolic 63–83; PULSE 72–87; RESP 15–20; TEMP 97.6–98; O2SAT 94–98
[2024-11-06 03:06] LABS: Basophils # (auto) 0 10 ^3/uL (0-0.2); Basophils % (auto) 1.1 % (0.0-2.0); Eosinophils # (auto) 0.2 10 ^3/uL (0-0.8); Eosinophils % (auto) 3.8 % (0.0-7.0); Hematocrit 34.5 % (36.0-46.0); Hemoglobin 11.1 g/dL (12.2-16.2); Lymphocytes # (auto) 1.9 10 ^3/uL (0.4-5.4); Lymphocytes % (auto) 44.9 % (10.0-50.0); Mean Corpuscular Hemoglobin 28.3 pg (28.0-32.0); Mean Corpuscular Hgb Conc. 32.3 g/dL (32.0-36.0); Mean Corpuscular Volume 87.4 fL (80.0-100.0); Monocytes # (auto) 0.3 10 ^3/uL (0-1.3); Monocytes % (auto) 7.1 % (0.0-12.0); Neutrophils # (auto) 1.8 10 ^3/uL (1.6-8.6); Neutrophils % (auto) 43.1 % (37.0-80.0); Nucleated Red Blood Cells % 0.2 %; Platelet Count (auto) 202 10^3/uL (140-450); Red Blood Cells 3.94 10^6/uL (4.0-5.20); Red Cell Distribution Width 18.8 % (11.8-14.3); White Blood Cell 4.2 10^3/uL (4.4-10.8)
[2024-11-06 03:23] LABS: INR 1.02 (0.9-1.15); Partial Thromboplastin Time 58.3 SEC (24.5-34.5); Prothrombin Time 10.8 sec (9.3-11.8)
[2024-11-06 11:47] LABS: Partial Thromboplastin Time 39.4 SEC (24.5-34.5); Prothrombin Time 10.6 sec (9.3-11.8)
--- NOTE | 2024-11-06 14:04 | DVHPN2 ---
Subjective Patient states that her left lower extremity hurts more than her right, rated a 5/10. Reviewed: Care Plan Changes from previous H/P or p: No Changes General: Per HPI Eyes: No Pain, No Vision change, No Conjunctivae inflammation, No Eyelid inflammation, No Other, No Redness ENT: No Ear pain, No Ear discharge, No Nose pain, No Nose discharge, No Nose congestion, No Mouth pain, No Mouth swelling, No Throat pain, No Throat swelling, No Other Cardiovascular: No Chest Pain, No Palpitations, No Orthopnea, No Paroxysmal Noc. Dyspnea, No Edema, No Lt Headedness, No Other Respiratory: No Cough, No Dry, No Shortness of breath, No SOB with excertion, No Wheezing, No Hemoptysis, No Pleuritic Pain, No Sputum, No Other Gastrointestinal: No Nausea, No Vomiting, No Abdominal Pain, No Diarrhea, No Constipation, No Melena, No Hematochezia, No Other Genitourinary: No Dysuria, No Frequency, No Incontinence, No Hematuria, No Retention, No Other Musculoskeletal: No other, No neck pain, No shoulder pain, No arm pain, No back pain, No hand pain; leg pain; No foot pain Skin: No Rash, No Lesions, No Jaundice, No Bruising, No Other Objective Vitals Vital Signs Date Time Temp Pulse Resp B/P (MAP) Pulse Ox O2 Delivery O2 Flow Rate FiO2 11/06/24 13:19 97.6 82 17 119/78 (92) 98 97.6 11/06/24 10:00 Room Air* 0 21 Intake/Output Intake and Output 11/06/24 07:00 Intake Total 990 ml Balance 990 ml Intake Oral 990 ml # Voids 5 General Appearance: Alert, Oriented X3, Cooperative, mild distress, Other (Obese) HEENT: Atraumatic, PERRLA Neck: Carotid Bruits [place], Enlarged Thyroid Cardiovascular: Normal S1, Normal S2 Abdomen: Normal bowel sounds Back: Midline Tenderness Musculoskeletal: Normal sensory function, Normal motor function Neuro: Normal gait, Normal speech Psych/Mental Status: Mental status NL, Mood NL Medications Current Medications Medications Dose Ordered Sig/Anabela Route Start Time Stop Time Status Last Admin Dose Admin Acetaminophen/ Hydrocodone Bitart 1 tab Q4HP PRN PO 11/03/24 12:00 11/05/24 13:53 1 TAB Ondansetron HCl 4 mg Q4HP PRN IV 11/03/24 12:00 11/04/24 06:30 4 MG Acetaminophen 650 mg Q6HP PRN PO 11/03/24 12:00 Morphine Sulfate 2 mg Q4HPRN PRN IV 11/03/24 12:00 11/06/24 10:11 2 MG Nitroglycerin 0.4 mg Q5MINP PRN SL 11/03/24 12:00 Morphine Sulfate 2 mg Q30M PRN IV 11/03/24 12:00 Albuterol 2.5 mg Q4HPRN PRN NEB 11/03/24 12:30 Ipratropium [place] 0.5 mg Q4HPRN PRN NEB 11/03/24 12:30 Trazodone HCl 50 mg HS PRN PO 11/04/24 15:45 Warfarin Sodium RX PROTOCOL PER PHARMACY PO 11/05/24 15:15 Heparin Sodium/ Dextrose 250 ml @ 9 mls/hr Q24H IV 11/05/24 16:30 11/06/24 12:34 11 MLS/HR Laboratory Results Laboratory Tests 11/04/24 05:54 11/06/24 02:55 Coagulation Test 11/05/24 15:00 11/05/24 20:58 11/06/24 02:55 11/06/24 11:12 Prothrombin Time 10.9 sec (9.3-11.8) 10.8 sec (9.3-11.8) 10.8 sec (9.3-11.8) 10.6 sec (9.3-11.8) Prothrombin Time INR 1.03 (0.9-1.15) 1.02 (0.9-1.15) 1.02 (0.9-1.15) 1.00 (0.9-1.15) Activated Partial Thromboplast Time 76.6 SEC (24.5-34.5) *H 55.5 SEC (24.5-34.5) H 58.3 SEC (24.5-34.5) H 39.4 SEC (24.5-34.5) H Labs and/or images reviewed: Labs reviewed by me, Image(s) reviewed by me Assessment/Plan Assessment/Plan Impression: -DVT to lower extremities -history of DVTs with pulmonary embolism -history of bypass surgery -obesity -primary hypertension Plan: -long discussion was made with the patient regarding treatment options. We will consult Interventional Cardiology for evaluation of DVTs -continue current anticoagulation with heparin, bridge with Coumadin -antihypertensives -pain management -protein S, protein C, factor five Leiden currently pending -repeat Labs in a.m. Total time spent with patient discussing and formulating plan of care: 35 minutes. This medical document was created using an electronic medical record system with [employer] dictation system. Although this document has been carefully reviewed, there may still be some phonetic and typographical errors. These areas are purely typographical due to imperfections of the software programs, and do not reflect any compromise in the patient's medical care. Plan discussed with: Patient, Other (RN) My Orders Orders - USHA EUBANKS NP Procedure Category Date Status Time * Cardiology Consult CONS 11/06/24 Transmitted 14:01 Date of Service: Nov 06, 2024 Billing Provider: USHA EUBANKS NP Common Visit Codes: [id number] INP/OBS CARE(HIGH) USHA EUBANKS NP Nov 06, 2024 14:04
[2024-11-06] MEDS: WARFARIN SODIUM 5 MG TAB PO ONE (18:14)
[2024-11-06 18:51] LABS: INR 1.03 (0.9-1.15); Partial Thromboplastin Time 63.3 SEC (24.5-34.5); Prothrombin Time 10.9 sec (9.3-11.8)
[2024-11-07] VITALS (11 sets, daily range): BP systolic 112–133; BP diastolic 68–89; PULSE 66–82; RESP 12–20; TEMP 97.6–98.3; O2SAT 93–100
[2024-11-07 01:12] LABS: INR 1.03 (0.9-1.15); Prothrombin Time 10.9 sec (9.3-11.8)
[2024-11-07 06:58] LABS: Basophils # (auto) 0.1 10 ^3/uL (0-0.2); Basophils % (auto) 1.4 % (0.0-2.0); Eosinophils # (auto) 0.2 10 ^3/uL (0-0.8); Eosinophils % (auto) 4.7 % (0.0-7.0); Hematocrit 34.4 % (36.0-46.0); Hemoglobin 11.3 g/dL (12.2-16.2); Lymphocytes # (auto) 1.7 10 ^3/uL (0.4-5.4); Mean Corpuscular Hemoglobin 28.1 pg (28.0-32.0); Mean Corpuscular Hgb Conc. 32.8 g/dL (32.0-36.0); Mean Corpuscular Volume 85.8 fL (80.0-100.0); Monocytes # (auto) 0.3 10 ^3/uL (0-1.3); Monocytes % (auto) 8.2 % (0.0-12.0); Neutrophils # (auto) 1.6 10 ^3/uL (1.6-8.6); Neutrophils % (auto) 40.7 % (37.0-80.0); Nucleated Red Blood Cells % 0.2 %; Platelet Count (auto) 204 10^3/uL (140-450); Red Blood Cells 4.01 10^6/uL (4.0-5.20); Red Cell Distribution Width 18.1 % (11.8-14.3); White Blood Cell 3.8 10^3/uL (4.4-10.8)
[2024-11-07 08:38] LABS: INR 1.08 (0.9-1.15); Partial Thromboplastin Time 67.7 SEC (24.5-34.5); Prothrombin Time 11.4 sec (9.3-11.8)
[2024-11-07] MEDS: HEPARIN DRIP/D5W 100UNITS/ML 250 ML IV SCH (09:30)
--- NOTE | 2024-11-07 10:14 | DVHPN2 ---
Subjective Patient continues to state that her left lower extremity hurts more than her right, rated a 5/10. Reviewed: Care Plan, H&P, Labs, Medications Changes from previous H/P or p: No Changes General: Per HPI Eyes: No Pain, No Vision change, No Conjunctivae inflammation, No Eyelid inflammation, No Other, No Redness ENT: No Ear pain, No Ear discharge, No Nose pain, No Nose discharge, No Nose congestion, No Mouth pain, No Mouth swelling, No Throat pain, No Throat swelling, No Other Cardiovascular: No Chest Pain, No Palpitations, No Orthopnea, No Paroxysmal Noc. Dyspnea, No Edema, No Lt Headedness, No Other Respiratory: No Cough, No Dry, No Shortness of breath, No SOB with excertion, No Wheezing, No Hemoptysis, No Pleuritic Pain, No Sputum, No Other Gastrointestinal: No Nausea, No Vomiting, No Abdominal Pain, No Diarrhea, No Constipation, No Melena, No Hematochezia, No Other Genitourinary: No Dysuria, No Frequency, No Incontinence, No Hematuria, No Retention, No Other Musculoskeletal: No other, No neck pain, No shoulder pain, No arm pain, No back pain, No hand pain; leg pain; No foot pain Skin: No Rash, No Lesions, No Jaundice, No Bruising, No Other Objective Vitals Vital Signs Date Time Temp Pulse Resp B/P (MAP) Pulse Ox O2 Delivery O2 Flow Rate FiO2 11/07/24 10:02 66 19 129/78 11/07/24 07:59 Room Air* 0 21 11/07/24 06:46 93 11/07/24 05:00 97.6 97.6 Intake/Output Intake and Output 11/07/24 07:00 Intake Total 996.50 ml Balance 996.50 ml Intake Oral 660 ml IV Total 336.50 ml # Voids 6 General Appearance: Alert, Oriented X3, Cooperative, mild distress, Other (Obese) HEENT: Atraumatic, PERRLA Neck: Carotid Bru[place], Enlarged Thyroid Cardiovascular: Normal S1, Normal S2 Abdomen: Normal bowel sounds Back: Midline Tenderness Musculoskeletal: Normal sensory function, Normal motor function Neuro: Normal gait, Normal speech Psych/Mental Status: Mental status NL, Mood NL Medications Current Medications Medications Dose Ordered Sig/Anabela Route Start Time Stop Time Status Last Admin Dose Admin Acetaminophen/ Hydrocodone Bitart 1 tab Q4HP PRN PO 11/03/24 12:00 11/07/24 06:07 1 TAB Ondansetron HCl 4 mg Q4HP PRN IV 11/03/24 12:00 11/04/24 06:30 4 MG Acetaminophen 650 mg Q6HP PRN PO 11/03/24 12:00 Morphine Sulfate 2 mg Q4HPRN PRN IV 11/03/24 12:00 11/07/24 10:02 2 MG Nitroglycerin 0.4 mg Q5MINP PRN SL 11/03/24 12:00 Morphine Sulfate 2 mg Q30M PRN IV 11/03/24 12:00 Albuterol 2.5 mg Q4HPRN PRN NEB 11/03/24 12:30 Ipratropium [place] 0.5 mg Q4HPRN PRN NEB 11/03/24 12:30 Trazodone HCl 50 mg HS PRN PO 11/04/24 15:45 Warfarin Sodium RX PROTOCOL PER PHARMACY PO 11/05/24 15:15 Heparin Sodium/ Dextrose 250 ml @ 11 mls/hr [id number] IV 11/07/24 09:30 Laboratory Results Laboratory Tests 11/04/24 05:54 11/07/24 05:45 Coagulation Test 11/06/24 11:12 11/06/24 18:28 11/07/24 00:30 11/07/24 05:45 Prothrombin Time 10.6 sec (9.3-11.8) 10.9 sec (9.3-11.8) 10.9 sec (9.3-11.8) 11.4 sec (9.3-11.8) Prothrombin Time INR 1.00 (0.9-1.15) 1.03 (0.9-1.15) 1.03 (0.9-1.15) 1.08 (0.9-1.15) Activated Partial Thromboplast Time 39.4 SEC (24.5-34.5) H 63.3 SEC (24.5-34.5) H 57.0 SEC (24.5-34.5) H 67.7 SEC (24.5-34.5) H Labs and/or images reviewed: Labs reviewed by me, Image(s) reviewed by me Assessment/Plan Assessment/Plan Impression: -DVT to lower extremities -history of DVTs with pulmonary embolism -history of bypass surgery -obesity -primary hypertension -failure of oral anticoagulation-Eliquis Plan: -cardiology consultation for DVT thrombectomy evaluation -continue current anticoagulation with heparin, bridge with Coumadin , INR 1.08 today -antihypertensives -pain management -protein S, protein C, factor five Leiden currently pending -repeat Labs in a.m. Total time spent with patient discussing and formulating plan of care: 35 minutes. This medical document was created using an electronic medical record system with [employer] dictation system. Although this document has been carefully reviewed, there may still be some phonetic and typographical errors. These areas are purely typographical due to imperfections of the software programs, and do not reflect any compromise in the patient's medical care. Plan discussed with: Patient, Other (RN) My Orders Orders - USHA EUBANKS NP Procedure Category Date Status Time * Cardiology Consult CONS 11/06/24 Transmitted 14:01 Date of Service: Nov 07, 2024 Billing Provider: USHA EUBANKS NP Common Visit Codes: [id number] INP/OBS CARE(HIGH) USHA EUBANKS NP Nov 07, 2024 10:14
--- NOTE | 2024-11-07 11:22 | DVHINCON2 ---
Date of service: Nov 07, 2024 History of Present Illness 53 yo F with hx of DVT and PE in early suspected 2/2 to OCP use, hx of IVC filter placement for gastric bypass in 2005 complicated by DVt PE, now on doac x 6 years admitted for dvt. pt has bl DVT and L > R. pt has been ambulating a lot this past week but claims to take her doac faithfully. cta was - for PE Past Medical History reviewed Family History: Hypertension G8 FATHER Allergies: Coded Allergies: NO KNOWN ALLERGIES (Unverified , 11/03/24) Home Meds Reported Medications Amlodipine Besylate (Amlodipine Besylate) 5 Mg Tab, 1 TAB PO DAILY 11/03/24 Ramelteon (Ramelteon) 8 Mg Tab, 1 TAB PO DAILY 11/03/24 Bupropion Hcl (Bupropion Hcl Er) 200 Mg Tab, 1 TAB PO QAM 11/03/24 Lisinopril (Lisinopril) 20 Mg Tab, 1 TAB PO DAILY 11/03/24 Aripiprazole (Aripiprazole) 5 Mg Tab, 1 TAB PO DAILY 11/03/24 Current Medications Current Medications Medications (Trade) Dose Ordered Sig/Anabela Route PRN Reason Start Time Stop Time Status Last Admin Heparin Sodium/ Dextrose 250 ml @ 11 mls/hr [id number] IV 11/07/24 09:30 Review of Systems 10 pt ros otherwise negative Vital Signs Vital Signs Date Time Temp Pulse Resp B/P (MAP) Pulse Ox O2 Delivery O2 Flow Rate FiO2 11/07/24 10:02 66 19 129/78 11/07/24 09:00 98.1 97 98.1 11/07/24 07:59 Room Air* 0 21 Physical Exam nad s1 s2 rrr ctab soft nt/nd L leg mild swelling to thigh no ankle edema noted on either side Labs/Diagnostic Data Labs Test 11/07/24 05:45 11/04/24 05:54 11/03/24 15:59 11/03/24 12:51 Range/Units White Blood Count 3.8 L 4.4-10.8 10^3/uL Red Blood Count 4.01 4.0-5.20 10^6/uL Hemoglobin 11.3 L 12.2-16.2 g/dL Hematocrit 34.4 L 36.0-46.0 % Mean Corpuscular Volume 85.8 80.0-100.0 fL Mean Corpuscular Hemoglobin 28.1 28.0-32.0 pg Mean Corpuscular Hemoglobin Concent 32.8 32.0-36.0 g/dL Red Cell Distribution Width 18.1 H 11.8-14.3 % Platelet Count 204 140-450 10^3/uL Mean Platelet Volume 9.1 6.9-10.8 fL Neutrophils (%) (Auto) 40.7 37.0-80.0 % Lymphocytes (%) (Auto) 45.0 10.0-50.0 % Monocytes (%) (Auto) 8.2 0.0-12.0 % Eosinophils (%) (Auto) 4.7 0.0-7.0 % Basophils (%) (Auto) 1.4 0.0-2.0 % Neutrophils # (Auto) 1.6 1.6-8.6 10 ^3/uL Lymphocytes # (Auto) 1.7 0.4-5.4 10 ^3/uL Monocytes # (Auto) 0.3 0-1.3 10 ^3/uL Eosinophils # (Auto) 0.2 0-0.8 10 ^3/uL Basophils # (Auto) 0.1 0-0.2 10 ^3/uL Nucleated Red Blood Cells 0.2 % Prothrombin Time 11.4 9.3-11.8 sec Prothrombin Time INR 1.08 0.9-1.15 Activated Partial Thromboplast Time 67.7 H 24.5-34.5 SEC Creatinine 0.68 0.550-1.02 mg/dL Glomerular Filtration Rate Calc 104 >90 mL/min Sodium Level 139 136-145 mmol/L Potassium Level 3.5 3.5-5.1 mmol/L Chloride Level 107 98-107 mmol/L Carbon Dioxide Level 26 20-31 mmol/L Anion Gap 6 5-15 Blood Urea Nitrogen 8 L 9-23 mg/dL BUN/Creatinine Ratio 9.8 L 10.0-20.0 Serum Glucose 90 74-106 mg/dL Calcium Level 9.9 8.7-10.4 mg/dL Total Bilirubin 1.1 H 0.2-1.0 mg/dL Aspartate Amino Transferase (AST) 11 L 13-40 U/L Alanine Aminotransferase (ALT) < 9 7-40 U/L Alkaline Phosphatase 70 46-116 U/L Total Protein 7.9 5.7-8.2 g/dL Albumin 4.1 3.2-4.8 g/dL Troponin I High Sensitivity < 3 L </=34 ng/L Assessment BL DVT hx of VTE ?hx of IVC filter obesity Plan/Recommendation images reviewed, L side has occlusive thrombus from CFV to SFV pop is open pt is ambulating well no pain cont heparin gtt if symptoms worsen consider thrombectomy , pt may have complonent of genoveva ta as well hypercoag workup should be considered in future if not already done, pt sees dr mitchell as well eliquis failure? cont heparin gtt, pt was on coumadin in past cta was- for PE< , no ivc filter noted? Plan discussed with: Patient JENNIFER MANLEY MD Nov 07, 2024 11:22
[2024-11-07] MEDS: WARFARIN SODIUM 5 MG TAB PO ONE (18:26)
[2024-11-08] VITALS (10 sets, daily range): BP systolic 103–124; BP diastolic 63–80; PULSE 66–76; RESP 12–18; TEMP 97.7–98.5; O2SAT 95–99
[2024-11-08 09:23] LABS: Basophils # (auto) 0.1 10 ^3/uL (0-0.2); Basophils % (auto) 1.4 % (0.0-2.0); Eosinophils # (auto) 0.2 10 ^3/uL (0-0.8); Eosinophils % (auto) 5.6 % (0.0-7.0); Hematocrit 37.9 % (36.0-46.0); Hemoglobin 12.1 g/dL (12.2-16.2); Lymphocytes # (auto) 1.7 10 ^3/uL (0.4-5.4); Lymphocytes % (auto) 42.6 % (10.0-50.0); Mean Corpuscular Hemoglobin 27.9 pg (28.0-32.0); Mean Corpuscular Hgb Conc. 31.9 g/dL (32.0-36.0); Mean Corpuscular Volume 87.3 fL (80.0-100.0); Monocytes # (auto) 0.2 10 ^3/uL (0-1.3); Monocytes % (auto) 5.8 % (0.0-12.0); Neutrophils # (auto) 1.8 10 ^3/uL (1.6-8.6); Neutrophils % (auto) 44.6 % (37.0-80.0); Nucleated Red Blood Cells % 0.4 %; Platelet Count (auto) 224 10^3/uL (140-450); Red Blood Cells 4.35 10^6/uL (4.0-5.20); Red Cell Distribution Width 18.6 % (11.8-14.3); White Blood Cell 4.1 10^3/uL (4.4-10.8)
[2024-11-08 09:49] LABS: INR 1.19 (0.9-1.15); Partial Thromboplastin Time 65.8 SEC (24.5-34.5); Prothrombin Time 12.5 sec (9.3-11.8)
[2024-11-08 11:06] LABS: Protein S-Functional 71 % (63-140)
--- NOTE | 2024-11-08 12:42 | DVHPN2 ---
Subjective Patient continues to state that her left lower extremity hurts more than her right, rated a 5/10. Reviewed: Care Plan, H&P, Labs, Medications Changes from previous H/P or p: No Changes General: Per HPI Eyes: No Pain, No Vision change, No Conjunctivae inflammation, No Eyelid inflammation, No Other, No Redness ENT: No Ear pain, No Ear discharge, No Nose pain, No Nose discharge, No Nose congestion, No Mouth pain, No Mouth swelling, No Throat pain, No Throat swelling, No Other Cardiovascular: No Chest Pain, No Palpitations, No Orthopnea, No Paroxysmal Noc. Dyspnea, No Edema, No Lt Headedness, No Other Respiratory: No Cough, No Dry, No Shortness of breath, No SOB with excertion, No Wheezing, No Hemoptysis, No Pleuritic Pain, No Sputum, No Other Gastrointestinal: No Nausea, No Vomiting, No Abdominal Pain, No Diarrhea, No Constipation, No Melena, No Hematochezia, No Other Genitourinary: No Dysuria, No Frequency, No Incontinence, No Hematuria, No Retention, No Other Musculoskeletal: No other, No neck pain, No shoulder pain, No arm pain, No back pain, No hand pain; leg pain; No foot pain Skin: No Rash, No Lesions, No Jaundice, No Bruising, No Other Objective Vitals Vital Signs Date Time Temp Pulse Resp B/P (MAP) Pulse Ox O2 Delivery O2 Flow Rate FiO2 11/08/24 09:56 97 Room Air 0.0 11/08/24 09:56 21 11/08/24 09:07 98.2 71 16 106/63 (77) 98.2 Intake/Output Intake and Output 11/08/24 07:00 Intake Total 1232 ml Output Total 0 ml Balance 1232 ml Intake Oral 1100 ml IV Total 132 ml Stool Total 0 ml # Voids 8 General Appearance: Alert, Oriented X3, Cooperative, mild distress, Other (Obese) HEENT: Atraumatic, PERRLA Neck: Carotid Bruits [place], Enlarged Thyroid Cardiovascular: Normal S1, Normal S2 Abdomen: Normal bowel sounds Back: Midline Tenderness Musculoskeletal: Normal sensory function, Normal motor function Neuro: Normal gait, Normal speech Psych/Mental Status: Mental status NL, Mood NL Medications Current Medications Medications Dose Ordered Sig/Anabela Route Start Time Stop Time Status Last Admin Dose Admin Acetaminophen/ Hydrocodone Bitart 1 tab Q4HP PRN PO 11/03/24 12:00 11/08/24 08:14 1 TAB Ondansetron HCl 4 mg Q4HP PRN IV 11/03/24 12:00 11/04/24 06:30 4 MG Acetaminophen 650 mg Q6HP PRN PO 11/03/24 12:00 Morphine Sulfate 2 mg Q4HPRN PRN IV 11/03/24 12:00 11/08/24 04:26 2 MG Nitroglycerin 0.4 mg Q5MINP PRN SL 11/03/24 12:00 Morphine Sulfate 2 mg Q30M PRN IV 11/03/24 12:00 Albuterol 2.5 mg Q4HPRN PRN NEB 11/03/24 12:30 Cancel Ipratropium [place] 0.5 mg Q4HPRN PRN NEB 11/03/24 12:30 Cancel Trazodone HCl 50 mg HS PRN PO 11/04/24 15:45 Warfarin Sodium RX PROTOCOL PER PHARMACY PO 11/05/24 15:15 Heparin Sodium/ Dextrose 250 ml @ 11 mls/hr [id number] IV 11/07/24 09:30 11/08/24 08:11 11 MLS/HR Laboratory Results Laboratory Tests 11/04/24 05:54 11/07/24 05:45 11/08/24 09:09 Coagulation Test 11/08/24 09:09 Prothrombin Time 12.5 sec (9.3-11.8) H Prothrombin Time INR 1.19 (0.9-1.15) H Activated Partial Thromboplast Time 65.8 SEC (24.5-34.5) H Labs and/or images reviewed: Labs reviewed by me, Image(s) reviewed by me Assessment/Plan Assessment/Plan Impression: -DVT to lower extremities -history of DVTs with pulmonary embolism -history of bypass surgery -obesity -primary hypertension -failure of oral anticoagulation-Eliquis Plan: -cardiology consultation: Consultation reviewed. -continue current anticoagulation with heparin, bridge with Coumadin , INR continues to be subtherapeutic. -antihypertensives -pain management -protein S, protein C, factor five Leiden currently pending -repeat Labs in a.m. Total time spent with patient discussing and formulating plan of care: 35 minutes. This medical document was created using an electronic medical record system with [employer] dictation system. Although this document has been carefully reviewed, there may still be some phonetic and typographical errors. These areas are purely typographical due to imperfections of the software programs, and do not reflect any compromise in the patient's medical care. Plan discussed with: Patient, Other (RN) My Orders Orders - USHA EUBANKS NP Procedure Category Date Status Time Basic Metabolic Panel LAB 11/09/24 Verified 04:00 Pt Request For Service PT 11/08/24 Transmitted 12:38 Hemoglobin & LAB 11/09/24 Verified Hematocrit 04:00 Date of Service: Nov 08, 2024 Billing Provider: USHA EUBANKS NP Common Visit Codes: [id number] INP/OBS CARE(HIGH) USHA EUBANKS NP Nov 08, 2024 12:42
[2024-11-08] MEDS: hydrOXYzine 25 MG TAB or CAP PO ONE (17:44)
[2024-11-08] MEDS: WARFARIN SODIUM 2 MG TAB PO ONE (17:50)
[2024-11-09] VITALS (9 sets, daily range): BP systolic 111–129; BP diastolic 66–85; PULSE 66–92; RESP 16–20; TEMP 97.5–98; O2SAT 95–100
[2024-11-09 07:43] LABS: Potassium 3.8 mmol/L (3.5-5.1); Sodium 141 mmol/L (136-145)
[2024-11-09 07:44] LABS: Anion Gap 7 (5-15); Calcium 9.6 mg/dL (8.7-10.4); Carbon Dioxide 25 mmol/L (20-31)
[2024-11-09 07:47] LABS: Chloride 109 mmol/L (98-107)
[2024-11-09 07:49] LABS: BUN/Creatinine Ratio 14.5 (10.0-20.0); Blood Urea Nitrogen 10 mg/dL (9-23); Glucose 92 mg/dL (74-106)
[2024-11-09 07:57] LABS: INR 1.4 (0.9-1.15); Prothrombin Time 14.5 sec (9.3-11.8)
[2024-11-09 08:25] LABS: Partial Thromboplastin Time 90.1 SEC (24.5-34.5)
[2024-11-09] MEDS: HEPARIN DRIP/D5W 100UNITS/ML 250 ML IV SCH (09:41)
--- NOTE | 2024-11-09 10:44 | DVHPN2 ---
Progress Note Date Seen: Nov 09, 2024 Medical Necessity Reason Pt with a Central, PICC or Fol: No Subjective Patient reports: Feels better Other Systems: INR <2 pt walking Objective vital signs Vital Sign Date Time Temp Pulse Resp B/P (MAP) Pulse Ox O2 Delivery O2 Flow Rate FiO2 11/09/24 10:09 72 18 106/67 11/09/24 05:00 98.0 98 98.0 11/08/24 20:00 Room Air* 0 21 Total Intake and Output 11/08/24 11/08/24 11/09/24 15:00 23:00 07:00 Intake Total 600 ml 250 ml Balance 600 ml 250 ml medications Current Medications Medications Dose Ordered Sig/Anabela Route Start Time Stop Time Status Last Admin Dose Admin Acetaminophen/ Hydrocodone Bitart 1 tab Q4HP PRN PO 11/03/24 12:00 11/09/24 05:11 1 TAB Ondansetron HCl 4 mg Q4HP PRN IV 11/03/24 12:00 11/04/24 06:30 4 MG Acetaminophen 650 mg Q6HP PRN PO 11/03/24 12:00 Morphine Sulfate 2 mg Q4HPRN PRN IV 11/03/24 12:00 11/09/24 09:38 2 MG Nitroglycerin 0.4 mg Q5MINP PRN SL 11/03/24 12:00 Morphine Sulfate 2 mg Q30M PRN IV 11/03/24 12:00 Albuterol 2.5 mg Q4HPRN PRN NEB 11/03/24 12:30 Cancel Ipratropium [place] 0.5 mg Q4HPRN PRN NEB 11/03/24 12:30 Cancel Trazodone HCl 50 mg HS PRN PO 11/04/24 15:45 Warfarin Sodium RX PROTOCOL PER PHARMACY PO 11/05/24 15:15 Heparin Sodium/ Dextrose 250 ml @ 8 mls/hr Q24H IV 11/09/24 09:35 11/09/24 09:41 8 MLS/HR Examination: GENERAL:Abnormal, HEENT:Abnormal, LUNGS:Abnormal, CVS:Abnormal, ABDOMEN:Abnormal laboratory and microbiology Laboratory Tests 11/09/24 07:13 11/08/24 09:09 Test 11/09/24 07:13 Range/Units Serum Glucose 92 74-106 mg/dL Problem List/Assessment/Plan Problem List/Assessment/Plan recurrent DVT obesity hx of VTE cont anticoag, coumadin now no thrombectomy at this time , pt agrees to plan hypercoag workup ongoing Plan discussed with: Patient Dietary Evaluation Review Comments: Monitor PO intake to meet 75% of her needs Expected Outcomes/Goals: gradual wt loss Date of Service: Nov 09, 2024 Billing Provider: JENNIFER MANLEY MD Common Visit Codes: NOT BILLABLE JENNIFER MANLEY MD Nov 09, 2024 10:44
[2024-11-09] MEDS: hydrOXYzine 25 MG TAB or CAP PO SCH (12:37)
--- NOTE | 2024-11-09 12:47 | DVHPN2 ---
Subjective Patient continues to state that her left lower extremity hurts more than her right, rated a 5/10. Reviewed: Care Plan, H&P, Labs, Medications Changes from previous H/P or p: No Changes General: Per HPI Eyes: No Pain, No Vision change, No Conjunctivae inflammation, No Eyelid inflammation, No Other, No Redness ENT: No Ear pain, No Ear discharge, No Nose pain, No Nose discharge, No Nose congestion, No Mouth pain, No Mouth swelling, No Throat pain, No Throat swelling, No Other Cardiovascular: No Chest Pain, No Palpitations, No Orthopnea, No Paroxysmal Noc. Dyspnea, No Edema, No Lt Headedness, No Other Respiratory: No Cough, No Dry, No Shortness of breath, No SOB with excertion, No Wheezing, No Hemoptysis, No Pleuritic Pain, No Sputum, No Other Gastrointestinal: No Nausea, No Vomiting, No Abdominal Pain, No Diarrhea, No Constipation, No Melena, No Hematochezia, No Other Genitourinary: No Dysuria, No Frequency, No Incontinence, No Hematuria, No Retention, No Other Musculoskeletal: No other, No neck pain, No shoulder pain, No arm pain, No back pain, No hand pain; leg pain; No foot pain Skin: No Rash, No Lesions, No Jaundice, No Bruising, No Other Objective Vitals Vital Signs Date Time Temp Pulse Resp B/P (MAP) Pulse Ox O2 Delivery O2 Flow Rate FiO2 11/09/24 10:09 72 18 106/67 11/09/24 05:00 98.0 98 98.0 11/08/24 20:00 Room Air* 0 21 Intake/Output Intake and Output 11/09/24 07:00 Intake Total 850 ml Balance 850 ml Intake Oral 600 ml IV Total 250 ml # Voids 7 General Appearance: Alert, Oriented X3, Cooperative, mild distress, Other (Obese) HEENT: Atraumatic, PERRLA Neck: Carotid [place], Enlarged Thyroid Cardiovascular: Normal S1, Normal S2 Abdomen: Normal bowel sounds Back: Midline Tenderness Musculoskeletal: Normal sensory function, Normal motor function Neuro: Normal gait, Normal speech Psych/Mental Status: Mental status NL, Mood NL Medications Current Medications Medications Dose Ordered Sig/Anabela Route Start Time Stop Time Status Last Admin Dose Admin Acetaminophen/ Hydrocodone Bitart 1 tab Q4HP PRN PO 11/03/24 12:00 11/09/24 12:43 1 TAB Ondansetron HCl 4 mg Q4HP PRN IV 11/03/24 12:00 11/04/24 06:30 4 MG Acetaminophen 650 mg Q6HP PRN PO 11/03/24 12:00 Morphine Sulfate 2 mg Q4HPRN PRN IV 11/03/24 12:00 11/09/24 09:38 2 MG Nitroglycerin 0.4 mg Q5MINP PRN SL 11/03/24 12:00 Morphine Sulfate 2 mg Q30M PRN IV 11/03/24 12:00 Albuterol 2.5 mg Q4HPRN PRN NEB 11/03/24 12:30 Cancel Ipratropium [place] 0.5 mg Q4HPRN PRN NEB 11/03/24 12:30 Cancel Trazodone HCl 50 mg HS PRN PO 11/04/24 15:45 Warfarin Sodium RX PROTOCOL PER PHARMACY PO 11/05/24 15:15 Heparin Sodium/ Dextrose 250 ml @ 8 mls/hr Q24H IV 11/09/24 09:35 11/09/24 09:41 8 MLS/HR Hydroxyzine Pamoate 50 mg DAILY PO 11/09/24 11:45 11/09/24 12:37 50 MG Laboratory Results Laboratory Tests 11/08/24 09:09 11/09/24 07:13 Chemistry Test 11/09/24 07:13 Calcium Level 9.6 mg/dL (8.7-10.4) Coagulation Test 11/09/24 07:13 Prothrombin Time 14.5 sec (9.3-11.8) H Prothrombin Time INR 1.40 (0.9-1.15) H Activated Partial Thromboplast Time 90.1 SEC (24.5-34.5) *H Labs and/or images reviewed: Labs reviewed by me, Image(s) reviewed by me Assessment/Plan Assessment/Plan Impression: -DVT to lower extremities -history of DVTs with pulmonary embolism -history of bypass surgery -obesity -primary hypertension -failure of oral anticoagulation-Eliquis Plan: -cardiology consultation: Consultation reviewed. -continue current anticoagulation with heparin, bridge with Coumadin , INR continues to be subtherapeutic. -antihypertensives -pain management -protein S, protein C, factor five Leiden currently pending -repeat Labs in a.m. Total time spent with patient discussing and formulating plan of care: 35 minutes. This medical document was created using an electronic medical record system with [employer] dictation system. Although this document has been carefully reviewed, there may still be some phonetic and typographical errors. These areas are purely typographical due to imperfections of the software programs, and do not reflect any compromise in the patient's medical care. Plan discussed with: Patient, Other (RN, cardiology.) My Orders Orders - USHA EUBANKS NP Procedure Category Date Status Time Hydroxyzine Oral PHA 11/09/24 In Process (Vistaril Oral) 11:45 Date of Service: Nov 09, 2024 Billing Provider: USHA EUBANKS NP Common Visit Codes: [id number] INP/OBS CARE(HIGH) USHA EUBANKS NP Nov 09, 2024 12:47
[2024-11-09 16:24] LABS: INR 1.47 (0.9-1.15); Partial Thromboplastin Time 54.1 SEC (24.5-34.5); Prothrombin Time 15.1 sec (9.3-11.8)
[2024-11-09] MEDS: WARFARIN SODIUM 2 MG TAB PO ONE (18:05)
[2024-11-09 22:31] LABS: INR 1.45 (0.9-1.15); Partial Thromboplastin Time 54.7 SEC (24.5-34.5)
[2024-11-09] MEDS: traZODone HCL 50 MG TAB PO PRN (22:33)
[2024-11-10] VITALS (7 sets, daily range): BP systolic 101–135; BP diastolic 58–76; PULSE 69–93; RESP 18–20; TEMP 97.8–98.1; O2SAT 95–100
[2024-11-10 06:25] LABS: INR 1.6 (0.9-1.15); Partial Thromboplastin Time 56.1 SEC (24.5-34.5); Prothrombin Time 16.4 sec (9.3-11.8)
[2024-11-10 12:06] LABS: Protein C Antigen 75 % (60-150)
[2024-11-10 17:36] LABS: Hematocrit 34.5 % (36.0-46.0); Hemoglobin 11.1 g/dL (12.2-16.2)
--- NOTE | 2024-11-10 17:43 | DVHPN2 ---
Subjective Some pain in the left lower extremity Reviewed: Care Plan, H&P, Labs, Medications, Previous Orders, Radiology, Other Changes from previous H/P or p: No Changes General: Per HPI Musculoskeletal: leg pain Objective Vitals Vital Signs Date Time Temp Pulse Resp B/P (MAP) Pulse Ox O2 Delivery O2 Flow Rate FiO2 11/10/24 16:59 98.1 90 18 115/58 (77) 99 98.1 11/10/24 10:00 Room Air 0.0 11/10/24 10:00 21 Intake/Output Intake and Output 11/10/24 07:00 Intake Total 2200 ml Balance 2200 ml Intake Oral 2200 ml # Voids 6 # Bowel Movements 1 General Appearance: Alert, Oriented X3, Cooperative HEENT: Atraumatic Lungs: Clear to auscultation Cardiovascular: Regular rate Abdomen: Normal bowel sounds Extremities: Other (Some bilateral extremities edema) Psych/Mental Status: Mental status NL, Mood NL Medications Current Medications Medications Dose Ordered Sig/Anabela Route Start Time Stop Time Status Last Admin Dose Admin Acetaminophen/ Hydrocodone Bitart 1 tab Q4HP PRN PO 11/03/24 12:00 11/10/24 15:58 1 TAB Ondansetron HCl 4 mg Q4HP PRN IV 11/03/24 12:00 11/04/24 06:30 4 MG Acetaminophen 650 mg Q6HP PRN PO 11/03/24 12:00 Morphine Sulfate 2 mg Q4HPRN PRN IV 11/03/24 12:00 11/09/24 22:20 2 MG Nitroglycerin 0.4 mg Q5MINP PRN SL 11/03/24 12:00 Morphine Sulfate 2 mg Q30M PRN IV 11/03/24 12:00 Albuterol 2.5 mg Q4HPRN PRN NEB 11/03/24 12:30 Cancel Ipratropium [place] 0.5 mg Q4HPRN PRN NEB 11/03/24 12:30 Cancel Trazodone HCl 50 mg HS PRN PO 11/04/24 15:45 11/09/24 22:33 50 MG Warfarin Sodium RX PROTOCOL PER PHARMACY PO 11/05/24 15:15 Heparin Sodium/ Dextrose 250 ml @ 8 mls/hr Q24H IV 11/09/24 09:35 11/09/24 16:45 8 MLS/HR Hydroxyzine Pamoate 50 mg DAILY PO 11/09/24 11:45 11/10/24 10:57 50 MG Laboratory Results Laboratory Tests 11/08/24 09:09 11/09/24 07:13 Coagulation Test 11/09/24 22:05 11/10/24 06:00 Prothrombin Time 15.0 sec (9.3-11.8) H 16.4 sec (9.3-11.8) H Prothrombin Time INR 1.45 (0.9-1.15) H 1.60 (0.9-1.15) H Activated Partial Thromboplast Time 54.7 SEC (24.5-34.5) H 56.1 SEC (24.5-34.5) H Assessment/Plan Assessment/Plan Bilateral lower extremity DVT History of DVT and PE started 20 years ago Patient had missed few doses of her Eliquis prior to the last episode of DVT last week Morbid obesity with BMI 43.2 Hiatal hernia/small to moderate History of gastric bypass surgery Hypertension Asthma Anemia Plan: Continue current plan of care. Check H&H. Further plan per orders Plan discussed with: Patient My Orders Orders - HUONG DAVIDSON MD Procedure Category Date Status Time Hemoglobin & LAB 11/10/24 In Process Hematocrit 15:13 Hemoglobin & LAB 11/10/24 Logged Hematocrit 21:13 Hemoglobin & LAB 11/11/24 Verified Hematocrit 03:13 Lupus Anticoagulant LAB 11/10/24 Transmitted Comp 17:36 Anticardiolipin Igg LAB 11/10/24 Transmitted Antibody 17:36 Date of Service: Nov 10, 2024 Billing Provider: HUONG DAVIDSON MD Common Visit Codes: [id number] INP/OBS CARE(HIGH) HUONG DAVIDSON MD Nov 10, 2024 17:43
[2024-11-10] MEDS: PANTOPRAZOLE 40 MG TAB PO ONE (18:28)
[2024-11-10] MEDS: WARFARIN SODIUM 2.5 MG TAB PO ONE (18:39)
[2024-11-10 22:26] LABS: Hematocrit 33.3 % (36.0-46.0); Hemoglobin 10.9 g/dL (12.2-16.2)
[2024-11-10 23:54] LABS: INR 1.82 (0.9-1.15); Partial Thromboplastin Time 29.6 SEC (24.5-34.5); Prothrombin Time 18.5 sec (9.3-11.8)
[2024-11-11] VITALS (8 sets, daily range): BP systolic 110–138; BP diastolic 64–90; PULSE 64–96; RESP 17–19; TEMP 97.4–98.1; O2SAT 92–100
[2024-11-11] MEDS: HEPARIN SODIUM (PORCINE) 5000 UNITS/ML 1ML VIAL IV ONE (00:37)
[2024-11-11] MEDS: HEPARIN DRIP/D5W 100UNITS/ML 250 ML IV SCH ×2 (00:47→10:00)
[2024-11-11] MEDS: PANTOPRAZOLE 40 MG TAB PO SCH (05:30)
[2024-11-11 08:02] LABS: Basophils # (auto) 0.1 10 ^3/uL (0-0.2); Basophils % (auto) 2.2 % (0.0-2.0); Eosinophils # (auto) 0.2 10 ^3/uL (0-0.8); Hematocrit 32.4 % (36.0-46.0); Hemoglobin 10.6 g/dL (12.2-16.2); Lymphocytes # (auto) 1.8 10 ^3/uL (0.4-5.4); Lymphocytes % (auto) 43.1 % (10.0-50.0); Mean Corpuscular Hemoglobin 28.1 pg (28.0-32.0); Mean Corpuscular Hgb Conc. 32.7 g/dL (32.0-36.0); Mean Corpuscular Volume 85.9 fL (80.0-100.0); Monocytes # (auto) 0.3 10 ^3/uL (0-1.3); Monocytes % (auto) 7.7 % (0.0-12.0); Neutrophils # (auto) 1.8 10 ^3/uL (1.6-8.6); Nucleated Red Blood Cells % 0.2 %; Platelet Count (auto) 189 10^3/uL (140-450); Red Blood Cells 3.77 10^6/uL (4.0-5.20); Red Cell Distribution Width 18.4 % (11.8-14.3); White Blood Cell 4.3 10^3/uL (4.4-10.8)
[2024-11-11 08:29] LABS: INR 2.32 (0.9-1.15); Prothrombin Time 23.1 sec (9.3-11.8)
[2024-11-11 08:38] LABS: Partial Thromboplastin Time > 139.0 SEC (24.5-34.5)
[2024-11-11] MEDS: hydrOXYzine 25 MG TAB or CAP PO SCH (10:47)
--- NOTE | 2024-11-11 16:28 | DVHPN2 ---
Subjective Some pain in the left lower extremity Reviewed: Care Plan, H&P, Labs, Medications, Previous Orders, Radiology, Other Changes from previous H/P or p: No Changes General: Per HPI Musculoskeletal: leg pain Objective Vitals Vital Signs Date Time Temp Pulse Resp B/P (MAP) Pulse Ox O2 Delivery O2 Flow Rate FiO2 11/11/24 13:00 98.1 79 17 138/90 (106) 98 98.1 11/11/24 10:00 Room Air 0.0 11/11/24 10:00 N/A Intake/Output Intake and Output 11/11/24 07:00 Intake Total 1350 ml Balance 1350 ml Intake Oral 1350 ml # Voids 6 General Appearance: Alert, Oriented X3, Cooperative HEENT: Atraumatic Lungs: Clear to auscultation Cardiovascular: Regular rate Abdomen: Normal bowel sounds Extremities: Other (Some bilateral extremities edema) Psych/Mental Status: Mental status NL, Mood NL Medications Current Medications Medications Dose Ordered Sig/Anabela Route Start Time Stop Time Status Last Admin Dose Admin Acetaminophen/ Hydrocodone Bitart 1 tab Q4HP PRN PO 11/03/24 12:00 11/11/24 14:11 1 TAB Ondansetron HCl 4 mg Q4HP PRN IV 11/03/24 12:00 11/04/24 06:30 4 MG Acetaminophen 650 mg Q6HP PRN PO 11/03/24 12:00 Morphine Sulfate 2 mg Q4HPRN PRN IV 11/03/24 12:00 11/11/24 10:52 2 MG Nitroglycerin 0.4 mg Q5MINP PRN SL 11/03/24 12:00 Morphine Sulfate 2 mg Q30M PRN IV 11/03/24 12:00 Albuterol 2.5 mg Q4HPRN PRN NEB 11/03/24 12:30 Cancel Ipratropium [place] 0.5 mg Q4HPRN PRN NEB 11/03/24 12:30 Cancel Trazodone HCl 50 mg HS PRN PO 11/04/24 15:45 11/09/24 22:33 50 MG Warfarin Sodium RX PROTOCOL PER PHARMACY PO 11/05/24 15:15 Pantoprazole Sodium 40 mg DAILY@0600 PO 11/11/24 06:00 11/11/24 05:30 40 MG Heparin Sodium/ Dextrose 250 ml @ 8 mls/hr Q24H IV 11/11/24 10:00 Hydroxyzine Pamoate 25 mg BID PO 11/11/24 10:00 11/11/24 10:47 25 MG Laboratory Results Laboratory Tests 11/09/24 07:13 11/11/24 07:41 Coagulation Test 11/10/24 22:06 11/10/24 23:28 11/11/24 07:41 11/11/24 16:00 Prothrombin Time Diluted Pending Dilute PT Confirmation Ratio Pending Thrombin Time Pending Dilute Jean-Pierre Viper Venom (Lupus) Pending Lupus Anticoagulant Interpretation Pending Prothrombin Time 18.5 sec (9.3-11.8) H 23.1 sec (9.3-11.8) H Pending Prothrombin Time INR 1.82 (0.9-1.15) H 2.32 (0.9-1.15) H Pending Activated Partial Thromboplast Time 29.6 SEC (24.5-34.5) > 139.0 SEC (24.5-34.5) *H Pending Assessment/Plan Assessment/Plan Bilateral lower extremity DVT History of DVT and PE started 20 years ago Patient had missed few doses of her Eliquis prior to the last episode of DVT last week Morbid obesity with BMI 43.2 Hiatal hernia/small to moderate History of gastric bypass surgery Hypertension Asthma Anemia Plan: Repeat H&H. Awaiting for the results of coagulopathy tests. Possible home tomorrow Plan discussed with: Patient My Orders Orders - HUONG DAVIDSON MD Procedure Category Date Status Time Lupus Anticoagulant LAB 11/10/24 In Process Comp 17:36 Anticardiolipin Igg LAB 11/10/24 In Process Antibody 17:36 Pantoprazole Tablet PHA 11/11/24 In Process (Protonix Tablet) 06:00 Hydroxyzine Oral PHA 11/11/24 In Process (Vistaril Oral) 10:00 Date of Service: Nov 11, 2024 Billing Provider: HUONG DAVIDSON MD Common Visit Codes: [id number] INP/OBS CARE(HIGH) HUONG DAVIDSON MD Nov 11, 2024 16:28
[2024-11-11 16:47] LABS: INR 2.38 (0.9-1.15); Partial Thromboplastin Time 62.5 SEC (24.5-34.5); Prothrombin Time 23.7 sec (9.3-11.8)
[2024-11-11 18:17] LABS: Hematocrit 34.5 % (36.0-46.0); Hemoglobin 11.1 g/dL (12.2-16.2)
[2024-11-11] MEDS: WARFARIN SODIUM 5 MG TAB PO ONE (18:22)
[2024-11-11 22:51] LABS: INR 2.49 (0.9-1.15); Prothrombin Time 24.7 sec (9.3-11.8)
[2024-11-12 01:00] VITALS: BP 115/65; PULSE 96; RESP 19; TEMP 98.2; O2SAT 96
[2024-11-12 05:00] VITALS: BP 111/61; PULSE 68; RESP 18; TEMP 98; O2SAT 98
[2024-11-12 08:00] VITALS: PULSE 73
[2024-11-12 08:03] LABS: INR 2.72 (0.9-1.15); Prothrombin Time 26.8 sec (9.3-11.8)
[2024-11-12 08:15] LABS: Partial Thromboplastin Time 74.9 SEC (24.5-34.5)
[2024-11-12 08:16] LABS: Basophils # (auto) 0 10 ^3/uL (0-0.2); Basophils % (auto) 0.8 % (0.0-2.0); Eosinophils # (auto) 0.2 10 ^3/uL (0-0.8); Eosinophils % (auto) 5.5 % (0.0-7.0); Hematocrit 32.2 % (36.0-46.0); Hemoglobin 10.3 g/dL (12.2-16.2); Mean Corpuscular Hemoglobin 27.5 pg (28.0-32.0); Mean Corpuscular Volume 85.8 fL (80.0-100.0); Monocytes # (auto) 0.3 10 ^3/uL (0-1.3); Neutrophils # (auto) 1.5 10 ^3/uL (1.6-8.6); Neutrophils % (auto) 36.7 % (37.0-80.0); Nucleated Red Blood Cells % 0.2 %; Platelet Count (auto) 192 10^3/uL (140-450); Red Blood Cells 3.75 10^6/uL (4.0-5.20); Red Cell Distribution Width 18.8 % (11.8-14.3)
[2024-11-12 09:03] VITALS: BP 136/76; PULSE 70; RESP 16; TEMP 97.6; O2SAT 100
[2024-11-12 12:52] VITALS: BP 131/71; PULSE 67; RESP 18; TEMP 98.1; O2SAT 98
[2024-11-12] MEDS: WARFARIN SODIUM 1 MG TAB PO ONE (16:54)
[2024-11-12] MEDS ORDERED: HYDR-4902 PO (16:58)
[2024-11-12] MEDS ORDERED: WARF4TAB69 PO (16:58)
[2024-11-12 17:00] VITALS: BP 129/75; PULSE 83; RESP 16; TEMP 98.4; O2SAT 98
--- NOTE | 2024-11-12 17:05 | DVHDS2 ---
Discharge Summary Date of Admission Nov 03, 2024 at 11:59 Date of Discharge: Nov 12, 2024 Admitting Diagnosis Left lower extremity pain secondary to DVT Labs/Diagnostic Data: Laboratory Results Test 11/12/24 07:15 11/11/24 07:41 11/10/24 22:06 11/09/24 07:13 White Blood Count 4.0 10^3/uL (4.4-10.8) Red Blood Count 3.75 10^6/uL (4.0-5.20) Hemoglobin 10.3 g/dL (12.2-16.2) Hematocrit 32.2 % (36.0-46.0) Mean Corpuscular Volume 85.8 fL (80.0-100.0) Mean Corpuscular Hemoglobin 27.5 pg (28.0-32.0) Mean Corpuscular Hemoglobin Concent 32.0 g/dL (32.0-36.0) Red Cell Distribution Width 18.8 % (11.8-14.3) Platelet Count 192 10^3/uL (140-450) Mean Platelet Volume 8.8 fL (6.9-10.8) Neutrophils (%) (Auto) 36.7 % (37.0-80.0) Lymphocytes (%) (Auto) 50.0 % (10.0-50.0) Monocytes (%) (Auto) 7.0 % (0.0-12.0) Eosinophils (%) (Auto) 5.5 % (0.0-7.0) Basophils (%) (Auto) 0.8 % (0.0-2.0) Neutrophils # (Auto) 1.5 10 ^3/uL (1.6-8.6) Lymphocytes # (Auto) 2.0 10 ^3/uL (0.4-5.4) Monocytes # (Auto) 0.3 10 ^3/uL (0-1.3) Eosinophils # (Auto) 0.2 10 ^3/uL (0-0.8) Basophils # (Auto) 0 10 ^3/uL (0-0.2) Nucleated Red Blood Cells 0.2 % Prothrombin Time 26.8 sec (9.3-11.8) Prothrombin Time INR 2.72 (0.9-1.15) Activated Partial Thromboplast Time 74.9 SEC (24.5-34.5) Creatinine 0.73 mg/dL (0.550-1.02) Glomerular Filtration Rate Calc 98 mL/min (>90) Sodium Level 141 mmol/L (136-145) Potassium Level 3.8 mmol/L (3.5-5.1) Chloride Level 109 mmol/L (98-107) Carbon Dioxide Level 25 mmol/L (20-31) Anion Gap 7 (5-15) Blood Urea Nitrogen 10 mg/dL (9-23) BUN/Creatinine Ratio 14.5 (10.0-20.0) Serum Glucose 92 mg/dL (74-106) Calcium Level 9.6 mg/dL (8.7-10.4) Test 11/04/24 05:54 11/03/24 15:59 11/03/24 12:51 Total Bilirubin 1.1 mg/dL (0.2-1.0) Aspartate Amino Transferase (AST) 11 U/L (13-40) Alanine Aminotransferase (ALT) < 9 U/L (7-40) Alkaline Phosphatase 70 U/L (46-116) Total Protein 7.9 g/dL (5.7-8.2) Albumin 4.1 g/dL (3.2-4.8) Troponin I High Sensitivity < 3 ng/L (</=34) Protein C Antigen 75 % (60-150) Functional Protein S 71 % (63-140) Other Laboratory Tests 11/12/24 07:15 11/11/24 07:41 11/09/24 07:13 Brief Hx & Hospital Course: History of Present Illness Rhonda Carolina is a 53-year-old female with past medical history of hypertension, asthma, CHF, PE, right ankle surgery, and gastric bypass who presents to the ED with bilateral leg pain and swelling x1 day. Patient reports that she has history of PE and is currently taking Eliquis. Patient reports that her pain is a 9/10 aching and constant. She denies any fevers, chills, chest pain, shortness of breath, abdominal pain, nausea, vomiting, diarrhea, lightheadedness, and dizziness. Course of hospitalization: Patient was started on bridge therapy with both heparin drip and Coumadin. Patient had protein C, protein S, factor five Leiden which were currently send outs and pending. Patient also had evaluation by Dr. Abebe for possible thrombectomy. At this time he wishes to continue with nonsurgical treatment with anticoagulation. Patient was INR is now 2.7. Heparin drip has been stopped. Patient continues to have pain to her left lower extremity, with the patient tolerating the pain with medication. She will be continued on Coumadin 2 mg q.h.s., and instructed to follow up with the Coumadin clinic in two days. She was also instructed to follow up with her PCP, Dr. Daisy Gomes in the next 2-3 weeks to follow up with the patient's pain, DVT, as well as lab work that was drawn NSAID out from this facility. She will continue all previous home medications other than Eliquis. Patient was agreeable this discharge plan. All questions answered. Physical examination General: Alert and Oriented x3. No acute distress. Well-nourished. Obese Eyes: EOMI. Anicteric. HENT: Moist mucous membranes. Lungs: Clear to auscultation bilaterally. No accessory muscle use. Cardiovascular: Regular rate and rhythm. No murmur. No JVD. Abdomen: Soft, non-tender and non-distended. No palpable masses. Extremities: No edema. Non-tender. Skin: No rashes or lesions. Warm. Neurologic: No focal neurological deficits. CN II-XII grossly intact, but not individually tested. Psychiatric: Cooperative. Appropriate mood and affect. Total time spent with patient discussing and formulating plan of care: 35 minutes. This medical document was created using an electronic medical record system with [employer] dictation system. Although this document has been carefully reviewed, there may still be some phonetic and typographical errors. These areas are purely typographical due to imperfections of the software programs, and do not reflect any compromise in the patient's medical care. Consults/Reason for consult Cardiology: Assess for thrombectomy Condition at Discharge: Fair Final Diagnosis/Problems List DVT left lower extremity, failure of oral anticoagulation with Eliquis Secondary Diagnosis: -DVT to lower extremities -history of DVTs with pulmonary embolism -history of gastric bypass surgery -obesity -primary hypertension -failure of oral anticoagulation-Eliquis Discharge Disposition: Home Discharge Instruct/Medications Diet: Cardiac 2g Na,low cholest Activity: No Restrictions, As Tolerated Follow Up/Referral: Follow up with Dr. Daisy Gomes in 1-2 weeks Follow up with Coumadin clinic in two days Medications: Coumadin 2 mg p.o. daily. change per [facility] 36 Discharge Statement: "Patient was advised to return to the ER or call 911 if any headaches, dizziness, shortness of breath, chest pain, abdominal pain, bleeding, fevers, or worsening of medical condition. Patient was counseled about treatment plan, medications, possible side effects, patientverbalized understanding. All questions were answered to the best of my ability. This discharge took greater then 30 minutes in planning, reviewing documentation, counseling the patient, and discussing with other team members." ASSESSMENT ASSESSMENT Assessment DVT left lower extremity, failure of oral anticoagulation with Eliquis Date of Service: Nov 12, 2024 Billing Provider: USHA EUBANKS NP Common Visit Codes: [id number] DISCH DAY >30min USHA EUBANKS NP Nov 12, 2024 17:05
[2024-11-14 18:06] LABS: Anticardiolipin IgG Antibody <9 GPL U/mL (0-14); Dilute Prothrombin Time(dPT) 53.8 sec (0.0-47.6); PTT-LA 31.6 sec (0.0-43.5); dPT Confirm Ratio 0.92 Ratio (0.00-1.34); dRVVT 39.4 sec (0.0-47.0)
[2024-11-14 19:06] LABS: Lupus Interpretation Comment: (.)
== END 2024-11-12 18:40 | disposition home or self-care (01) | DRG 197 ==
LOC: ER 09:08 → TELE 11:59 → TELE-WESTW 12:02
PROVIDERS: ADMIT Nurse Practitioner Acute Care; ATTEND Nurse Practitioner Acute Care
DX: I82.413 Acute embolism and thrombosis of femoral vein, bilateral (principal); I11.0 Hypertensive heart disease with heart failure; I50.9 Heart failure, unspecified; D64.9 Anemia, unspecified; E66.01 Morbid (severe) obesity due to excess calories; E66.9 Obesity, unspecified; F51.04 Psychophysiologic insomnia; J45.909 Unspecified asthma, uncomplicated; K44.9 Diaphragmatic hernia without obstruction or gangrene; Z68.41 Body mass index [BMI] 40.0-44.9, adult; Z86.711 Personal history of pulmonary embolism; Z98.84 Bariatric surgery status; Z82.49 Family history of ischemic heart disease and other diseases of the circulatory system; Z95.828 Presence of other vascular implants and grafts; Z79.01 Long term (current) use of anticoagulants
CPT/HCPCS: 36415; 71045; 71275; 80048; 80053; 81241; 82565; 84484; 85014; 85018; 85025; 85302; 85306; 85610; 85613; 85670; 85705; 85730; 85732; 93970; 97116; 97163; 97530; G0378; J2405